=== PATIENT | male | born 1985 | race American Indian/Alaskan Native ===

== ENCOUNTER 2018-03-09 00:47 | Emergency (ER) | payer SELFPAY ==
[2018-03-09] MEDS ORDERED: NACL 0.9% 1000 ML 1,000 ML IV ONE (00:52)
[2018-03-09] MEDS ORDERED: BOOSTRIX IM ONE (00:54)
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
[2018-03-09 01:09] LABS: Basophils # (Auto) 0.1 K/mm3 (0.0-0.1); Basophils % (Auto) 0.7 % (0.0-1.8); Eosinophils # (Auto) 0.2 K/mm3 (0.0-0.4); Eosinophils % (Auto) 2.8 % (0.0-4.3); Hematocrit 34.6 % (35.5-45.6); Hemoglobin 11.3 gm/dl (11.8-15.2); Lymphocytes # (Auto) 3.3 K/mm3 (1.2-5.4); Lymphocytes % (Auto) 38.8 % (13.4-35.0); Mean Corpuscular HGB Conc 33 % (32-34); Mean Corpuscular Hemoglobin 30 pg (28-32); Mean Corpuscular Volume 93 fl (84-94); Monocytes # (Auto) 1.2 K/mm3 (0.0-0.8); Monocytes % (Auto) 14.6 % (0.0-7.3); Platelet Count 237 K/mm3 (140-440); Red Blood Count 3.73 M/mm3 (3.65-5.03); Red Cell Distribution Width 16.1 % (13.2-15.2)
[2018-03-09 01:21] LABS: Alanine Aminotransferase 13 units/L (7-56); Albumin 3.3 g/dL (3.9-5); BUN/Creatinine Ratio 9; Blood Urea Nitrogen 11 mg/dL (9-20); Calcium 7.8 mg/dL (8.4-10.2); Hemolysis Index 16
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
[2018-03-09] MEDS ORDERED: HYDROGEN PEROXIDE TP ONE (01:40)
[2018-03-09] MEDS ORDERED: HYDROGEN PEROXIDE ONE (01:42)
[2018-03-09] MEDS ORDERED: ceFAZolin 2 GM in NACL 0.9% 100 ML IV ONE (02:31)
[2018-03-09 03:43] VITALS: BP 129/61
== END 2018-03-09 04:44 | disposition other institution (70) ==
LOC: EDBD → ED 00:47
DX: S71.132A Puncture wound without foreign body, left thigh, initial encounter (principal); D62 Acute posthemorrhagic anemia; W34.09XA Accidental discharge from other specified firearms, initial encounter; Y93.89 Activity, other specified; Y99.8 Other external cause status; Y92.410 Unspecified street and highway as the place of occurrence of the external cause
CPT/HCPCS: 36415; 73552; 80053; 82550; 83615; 85025; 86850; 86900; 86901; 90471; 90715; 96365; 99291; G0480; J0690; J7030; 80320